=== PATIENT | male | born 1985 | race Caucasian/White ===

== ENCOUNTER 2017-09-15 00:35 | Emergency (ER) | payer BC ==
--- NOTE | 2017-09-15 00:43 | EDM.PDOC ---
ED HPI GENERAL MEDICAL PROBLEM - General Chief Complaint: General Stated Complaint: FEELING ILL Time Seen by Provider: 09/15/17 00:37 - History of Present Illness INITIAL COMMENTS - FREE TEXT/NARRATIVE: HISTORY AND PHYSICAL: History of present illness: Patient 32-year-old white male no past medical history presents with a concern of generally not feeling well he states he's had some nausea and poor appetite he denies fever cough chest pain shortness of breath diarrhea vomiting or other concern. Review of systems: As per history of present illness and below otherwise all systems reviewed and negative. Past medical history: As per history of present illness and as reviewed below otherwise noncontributory. Surgical history: As per history of present illness and as reviewed below otherwise noncontributory. Social history: No reported history of drug or alcohol abuse. Family history: As per history of present illness and as reviewed below otherwise noncontributory. Physical exam: HEENT: Atraumatic, normocephalic, pupils reactive, negative for conjunctival pallor or scleral icterus, mucous membranes moist, throat clear, neck supple, nontender, trachea midline. Lungs: Clear to auscultation, breath sounds equal bilaterally, chest nontender. Heart: S1S2, regular, negative for clicks, rubs, or JVD. Abdomen: Soft, nondistended, nontender. Negative for masses or hepatosplenomegaly. Negative for costovertebral tenderness. Pelvis: Stable nontender. Genitourinary: Deferred. Rectal: Deferred. Extremities: Atraumatic, negative for cords or calf pain. Neurovascular unremarkable. Neuro: Awake, alert, oriented. Cranial nerves II through XII unremarkable. Cerebellum unremarkable. Motor and sensory unremarkable throughout. Exam nonfocal. Diagnostics: CBC CMP influenza screen chest x-ray Therapeutics: None Impression: 1 medical screening exam Definitive disposition and diagnosis as appropriate pending reevaluation and review of above. - Related Data Allergies Allergy/AdvReac Type Severity Reaction Status Date / Time naproxen Allergy Rash Verified 10/26/13 00:15 Penicillins Allergy Rash Verified 10/26/13 00:15 Home Meds: Home Meds Hydrocortisone [Cortizone 10] 28 gm TP BID 10/26/13 [History] Past Medical History - Past Health History Medical/Surgical History: Denies Medical/Surgical History Social & Family History - Tobacco Use Years of Tobacco use: 1 Used Tobacco, but Quit: No - Alcohol Use Days Per Week of Alcohol Use: 0 - Recreational Drug Use Recreational Drug Use: No ED ROS GENERAL - Review of Systems Review Of Systems: ROS reveals no pertinent complaints other than HPI. ED EXAM, GENERAL - Physical Exam Exam: See Below (The dictation) Course - Orders/Labs/Meds Orders: Active Orders 24 hr Category Date Time Status Chest 1V Frontal [CR] Stat Exams 09/15/17 00:40 Ordered CBC WITH AUTO DIFF [HEME] Stat Lab 09/15/17 00:40 Ordered COMPREHENSIVE METABOLIC PN,CMP [CHEM] Stat Lab 09/15/17 00:40 Ordered INFLUENZA A+B AG SCREEN [RM] Stat Lab 09/15/17 00:40 Ordered Departure - Departure Time of Disposition: 00:42 Disposition: Home, Self-Care 01 Condition: Good Clinical Impression: Encounter for medical screening examination - Discharge Information Additional Instructions: The following information is given to patients seen in the emergency department who are being discharged to home. This information is to outline your options for follow-up care. We provide all patients seen in our emergency department with a follow-up referral. The need for follow-up, as well as the timing and circumstances, are variable depending upon the specifics of your emergency department visit. If you don't have a primary care physician on staff, we will provide you with a referral. We always advise you to contact your personal physician following an emergency department visit to inform them of the circumstance of the visit and for follow-up with them and/or the need for any referrals to a consulting specialist. The emergency department will also refer you to a specialist when appropriate. This referral assures that you have the opportunity for followup care with a specialist. All of these measure are taken in an effort to provide you with optimal care, which includes your followup. Under all circumstances we always encourage you to contact your private physician who remains a resource for coordinating your care. When calling for followup care, please make the office aware that this follow-up is from your recent emergency room visit. If for any reason you are refused follow-up, please contact the [facility] emergency department at and asked to speak to the emergency department charge nurse. [facility] [address] [place] [id number] Follow-up clinic call to schedule routine appointment push fluids return as needed as discussed - My Orders Last 24 Hours: My Active Orders 09/15/17 00:40 Chest 1V Frontal [CR] Stat CBC WITH AUTO DIFF [HEME] Stat COMPREHENSIVE METABOLIC PN,CMP [CHEM] Stat INFLUENZA A+B AG SCREEN [RM] Stat - Assessment/Plan Last 24 Hours: My Active Orders 09/15/17 00:40 Chest 1V Frontal [CR] Stat CBC WITH AUTO DIFF [HEME] Stat COMPREHENSIVE METABOLIC PN,CMP [CHEM] Stat INFLUENZA A+B AG SCREEN [RM] Stat
[2017-09-15 01:22] LABS: CHLORIDE,CL 104 mmol/L (98-107); SODIUM,NA 142 mmol/L (136-148)
--- NOTE | 2017-09-15 10:52 | CR ---
EXAM DATE: 09/15/17 PATIENT'S AGE: 32 Patient: RANDI DE JESUS Facility: [place], [place] Site . Site : 1985 Study: XRay Chest [id number]/21/2018 1:07:33 AM Ordering Physician: Nusrat Thompson Final Report: INDICATION: Weak for 3 days TECHNIQUE: Chest radiograph 1 view COMPARISON: None FINDINGS: Mediastinum: The heart silhouette is normal in size and morphology. The mediastinum is normal in appearance. Lungs: Both lungs are unremarkable in appearance. No sign of pleural effusion seen. No pneumothorax is identified. Bones and soft tissue: Unremarkable for age. IMPRESSION: 1. No acute cardiopulmonary disease is seen. Dictated by: Orlando Lerma MD @ 09/15/2017 01:08:09 (Electronic Signature) Report Signed by Proxy. [email or web address]
== END 2017-09-15 01:40 | disposition home or self-care (01) ==
LOC: MW.ED 00:35
DX: Z13.9 Encounter for screening, unspecified (principal); Z88.0 Allergy status to penicillin; Z88.6 Allergy status to analgesic agent; Z79.899 Other long term (current) drug therapy
CPT/HCPCS: 36415; 71045; 71045-26; 80053; 85025; 87804; 99282; 99283

== ENCOUNTER 2017-12-02 04:28 | Emergency (ER) | payer BC ==
[2017-12-02] MEDS ORDERED: Sodium Chloride 0.9% 1,000 ML IV ONE (04:49)
[2017-12-02 05:07] LABS: CHLORIDE,CL 104 mmol/L (98-107); SODIUM,NA 141 mmol/L (136-148)
--- NOTE | 2017-12-02 06:52 | EDM.PDOC ---
ED HPI GENERAL MEDICAL PROBLEM - General Chief Complaint: Abdominal Pain Stated Complaint: ABDOMINAL PAIN AND BACK PAIN Time Seen by Provider: 12/02/17 06:47 - History of Present Illness INITIAL COMMENTS - FREE TEXT/NARRATIVE: HISTORY AND PHYSICAL: History of present illness: Patient's a 32-year-old white male presents with a concern of right-sided abdominal pain is in no associated vomiting diarrhea fever chills he denies trauma denies urinary symptoms denies history of urolithiasis Review of systems: As per history of present illness and below otherwise all systems reviewed and negative. Past medical history: As per history of present illness and as reviewed below otherwise noncontributory. Surgical history: As per history of present illness and as reviewed below otherwise noncontributory. Social history: No reported history of drug or alcohol abuse. Family history: As per history of present illness and as reviewed below otherwise noncontributory. Physical exam: HEENT: Atraumatic, normocephalic, pupils reactive, negative for conjunctival pallor or scleral icterus, mucous membranes moist, throat clear, neck supple, nontender, trachea midline. Lungs: Clear to auscultation, breath sounds equal bilaterally, chest nontender. Heart: S1S2, regular, negative for clicks, rubs, or JVD. Abdomen: Soft, nondistended, right-sided tenderness no rebound no guarding. Negative for masses or hepatosplenomegaly. Negative for costovertebral tenderness. Pelvis: Stable nontender. Genitourinary: Deferred. Rectal: Deferred. Extremities: Atraumatic, negative for cords or calf pain. Neurovascular unremarkable. Neuro: Awake, alert, oriented. Cranial nerves II through XII unremarkable. Cerebellum unremarkable. Motor and sensory unremarkable throughout. Exam nonfocal. Diagnostics: CBC CMP UA CT abdomen and pelvis Therapeutics: Normal saline 1 L bolus Impression: #1 abdominal pain Definitive disposition and diagnosis as appropriate pending reevaluation and review of above. right lower abdomen Pain Score (Numeric/FACES): 10 - Related Data Allergies Allergy/AdvReac Type Severity Reaction Status Date / Time naproxen Allergy Rash Verified 12/02/17 04:32 Home Meds: Home Meds . [No Known Home Meds] 12/02/17 [History] Past Medical History - Past Health History Medical/Surgical History: Denies Medical/Surgical History Psychiatric History: Reports: Depression - Past Surgical History Musculoskeletal Surgical History: Reports: Other (See Below) Other Musculoskeletal Surgeries/Procedures:: right hand sx Social & Family History - Family History Family Medical History: Noncontributory - Tobacco Use Smoking Status *Q: Current Every Day Smoker Years of Tobacco use: 1 Packs/Tins Daily: 1 - Recreational Drug Use Recreational Drug Use: No ED ROS GENERAL - Review of Systems Review Of Systems: ROS reveals no pertinent complaints other than HPI. ED EXAM, GENERAL - Physical Exam Exam: See Below (See dictation) Course - Vital Signs Last Recorded V/S: Last Vital Signs Temp 36.6 C 12/02/17 05:27 Pulse 79 12/02/17 05:27 Resp 14 12/02/17 05:27 BP 117/71 12/02/17 05:27 Pulse Ox 97 12/02/17 05:27 - Orders/Labs/Meds Orders: Active Orders 24 hr Category Date Time Status Abdomen Pelvis wo Cont [CT] Stat Exams 12/02/17 04:48 Taken URINALYSIS W/MICROSCOPIC [UA W/MICROSCOPIC] [URIN] Stat Lab 12/02/17 04:54 Ordered Labs: Laboratory Tests 12/02/17 12/02/17 12/02/17 Range/Units 04:43 04:43 04:54 WBC 13.09 H (4.0-11.0) K/uL RBC 5.08 (4.50-5.90) M/uL Hgb 17.2 H (13.0-17.0) g/dL Hct 48.0 (38.0-50.0) % MCV 94.5 (80.0-98.0) fL MCH 33.9 H (27.0-32.0) pg MCHC 35.8 (31.0-37.0) g/dL RDW Std Deviation 44.2 (28.0-62.0) fl RDW Coeff of Kya 13 (11.0-15.0) % Plt Count 242 (150-400) K/uL MPV 10.50 (7.40-12.00) fL Neut % (Auto) 63.7 (48.0-80.0) % Lymph % (Auto) 26.3 (16.0-40.0) % [place] % (Auto) 6.8 (0.0-15.0) % Eos % (Auto) 2.8 (0.0-7.0) % Baso % (Auto) 0.4 (0.0-1.5) % Neut # (Auto) 8.3 H (1.4-5.7) K/uL Lymph # (Auto) 3.4 H (0.6-2.4) K/uL Roosevelt # (Auto) 0.9 H (0.0-0.8) K/uL Eos # (Auto) 0.4 (0.0-0.7) K/uL Baso # (Auto) 0.1 (0.0-0.1) K/uL Nucleated RBC % 0.0 /100WBC Nucleated RBCs # 0 K/uL Sodium 141 (136-148) mmol/L Potassium 3.9 (3.5-5.1) mmol/L Chloride 104 (98-107) mmol/L Carbon Dioxide 24.9 (21.0-32.0) mmol/L BUN 8 (7.0-18.0) mg/dL Creatinine 1.0 (0.8-1.3) mg/dL Est Cr Clr Drug Dosing 122.07 mL/min Estimated GFR (MDRD) > 60.0 ml/min Glucose 97 (74-106) mg/dL Calcium 8.9 (8.5-10.1) mg/dL Total Bilirubin 0.5 (0.2-1.0) mg/dL AST 27 (15-37) IU/L ALT 48 (14-63) IU/L Alkaline Phosphatase 75 (46-116) U/L Total Protein 7.7 (6.4-8.2) g/dL Albumin 4.0 (3.4-5.0) g/dL Globulin 3.7 H (2.0-3.5) g/dL Albumin/Globulin Ratio 1.1 L (1.3-2.8) Urine Color YELLOW Urine Appearance CLEAR Urine pH 5.5 (5.0-8.0) Ur Specific [place] 1.025 (1.001-1.035) Urine Protein NEGATIVE (NEGATIVE) mg/dL Urine Glucose (UA) NEGATIVE (NEGATIVE) mg/dL Urine Ketones NEGATIVE (NEGATIVE) mg/dL Urine Occult Blood NEGATIVE (NEGATIVE) Urine Nitrite NEGATIVE (NEGATIVE) Urine Bilirubin NEGATIVE (NEGATIVE) Urine Urobilinogen 0.2 (<2.0) EU/dL Ur Leukocyte Esterase NEGATIVE (NEGATIVE) Urine RBC 0-2 (0-2/HPF) Urine WBC 0-3 (0-5/HPF) Ur Epithelial Cells OCCASIONAL (NONE-FEW) Urine Bacteria FEW (NEGATIVE) Urine Mucus LIGHT (NONE-MOD) Meds: Medications Discontinued Medications Generic Name Dose Route Start Last Admin Trade Name Margie PRN Reason Stop Dose Admin Sodium Chloride 1,000 mls @ 999 mls/hr 12/02/17 04:49 12/02/17 04:51 Normal Saline IV 12/02/17 05:49 999 mls/hr .BOLUS ONE Administration Departure - Departure Time of Disposition: 06:51 Disposition: Home, Self-Care 01 Condition: Good Clinical Impression: Abdominal pain - Discharge Information Referrals: PCP,None [Primary Care Provider] - Additional Instructions: The following information is given to patients seen in the emergency department who are being discharged to home. This information is to outline your options for follow-up care. We provide all patients seen in our emergency department with a follow-up referral. The need for follow-up, as well as the timing and circumstances, are variable depending upon the specifics of your emergency department visit. If you don't have a primary care physician on staff, we will provide you with a referral. We always advise you to contact your personal physician following an emergency department visit to inform them of the circumstance of the visit and for follow-up with them and/or the need for any referrals to a consulting specialist. The emergency department will also refer you to a specialist when appropriate. This referral assures that you have the opportunity for followup care with a specialist. All of these measure are taken in an effort to provide you with optimal care, which includes your followup. Under all circumstances we always encourage you to contact your private physician who remains a resource for coordinating your care. When calling for followup care, please make the office aware that this follow-up is from your recent emergency room visit. If for any reason you are refused follow-up, please contact the [facility] emergency department at and asked to speak to the emergency department charge nurse. Push fluids clear liquids 24 hours follow-up primary medical doctor as needed as discussed return as needed as discussed - My Orders Last 24 Hours: My Active Orders 12/02/17 04:48 Abdomen Pelvis wo Cont [CT] Stat 12/02/17 04:54 URINALYSIS W/MICROSCOPIC [UA W/MICROSCOPIC] [URIN] Stat - Assessment/Plan Last 24 Hours: My Active Orders 12/02/17 04:48 Abdomen Pelvis wo Cont [CT] Stat 12/02/17 04:54 URINALYSIS W/MICROSCOPIC [UA W/MICROSCOPIC] [URIN] Stat
--- NOTE | 2017-12-02 08:14 | PCM.CONS ---
H&P History of Present Illness - General Date of Service: 12/02/17 Admit Problem/Dx: Abdominal and back pain. One episode of nausea and vomiting. Admits to drinking a 12 pack of beer last night. Source of Information: Patient, Family History Limitations: Reports: Intoxication - History of Present Illness Symptom Onset Date: 12/01/17 Duration of Symptoms: Reports: Constant, Heavy Location: Reports: Abdomen, Back Quality: Reports: Ache, Sharp Severity: Moderate Improves with: Reports: Rest Worsens with: Reports: Movement Context: Reports: Sick Contact Associated Symptoms: Reports: No Other Symptoms right lower abdomen Pain Score (Numeric/FACES): 6 - Related Data Allergies/Adverse Reactions: Allergies Allergy/AdvReac Type Severity Reaction Status Date / Time naproxen Allergy Rash Verified 12/02/17 04:32 Home Medications: Home Meds . [No Known Home Meds] 12/02/17 [History] Past Medical History - Past Health History Medical/Surgical History: Denies Medical/Surgical History Psychiatric History: Reports: Depression - Past Surgical History Musculoskeletal Surgical History: Reports: Other (See Below) Other Musculoskeletal Surgeries/Procedures:: right hand sx Social & Family History - Family History Family Medical History: Noncontributory - Tobacco Use Smoking Status *Q: Current Every Day Smoker Years of Tobacco use: 1 Packs/Tins Daily: 1 - Recreational Drug Use Recreational Drug Use: No H&P Review of Systems - Review of Systems: Review Of Systems: See Below General: Denies: Fever, Chills HEENT: Reports: No Symptoms Pulmonary: Denies: Shortness of Breath, Wheezing Cardiovascular: Denies: Chest Pain, Palpitations Gastrointestinal: Reports: Abdominal Pain, Diarrhea, Nausea, Vomiting. Denies: Anorexia, Black Stool, Bloody Stool, Constipation, Decreased Appetite, Hematemesis, Hematochezia, Melena Genitourinary: Denies: Dysuria, Frequency Musculoskeletal: Reports: No Symptoms Skin: Denies: Cyanosis, Jaundice Psychiatric: Denies: Confusion, Depression Neurological: Reports: No Symptoms Hematologic/Lymphatic: Reports: No Symptoms Immunologic: Reports: No Symptoms Exam - Exam Exam: See Below - Vital Signs Vital Signs: Last Vital Signs Temp 97.8 F 12/02/17 07:46 Pulse 80 12/02/17 07:46 Resp 18 12/02/17 07:46 BP 131/83 12/02/17 07:46 Pulse Ox 96 12/02/17 07:46 Weight: 210 lb - Exam General: Alert, Oriented, Cooperative, Mild Distress HEENT: Conjunctiva Clear, EACs Clear, EOMI, Pupils Equal, Pupils Reactive. No: Scleral Icterus Neck: Supple, Trachea Midline Lungs: Clear to Auscultation, Normal Respiratory Effort. No: Wheezing Cardiovascular: Regular Rate, Regular Rhythm. No: Tachycardia GI/Abdominal Exam: Normal Bowel Sounds, Soft, Non-Tender, No Distention, No Mass. No: Guarding, Rigid, Rebound (Male) Exam: No Hernia Rectal (Males) Exam: Deferred Back Exam: Normal Inspection, Other (right flank tenderness) Extremities: Normal Inspection Peripheral Pulses: 4+: Posterior Tibial (L), Posterior Tibial (R), Dorsalis Pedis (L), Dorsalis Pedis (R) Skin: Warm, Dry, Intact Neurological: Cranial Nerves Intact, Reflexes Equal Bilateral Psychiatric: Alert, Normal Affect, Normal Mood - Patient Data Lab Results Last 24 hrs: Laboratory Results - last 24 hr 12/02/17 12/02/17 12/02/17 Range/Units 04:43 04:43 04:54 WBC 13.09 H (4.0-11.0) K/uL RBC 5.08 (4.50-5.90) M/uL Hgb 17.2 H (13.0-17.0) g/dL Hct 48.0 (38.0-50.0) % MCV 94.5 (80.0-98.0) fL MCH 33.9 H (27.0-32.0) pg MCHC 35.8 (31.0-37.0) g/dL RDW Std Deviation 44.2 (28.0-62.0) fl RDW Coeff of Kya 13 (11.0-15.0) % Plt Count 242 (150-400) K/uL MPV 10.50 (7.40-12.00) fL Neut % (Auto) 63.7 (48.0-80.0) % Lymph % (Auto) 26.3 (16.0-40.0) % [place] % (Auto) 6.8 (0.0-15.0) % Eos % (Auto) 2.8 (0.0-7.0) % Baso % (Auto) 0.4 (0.0-1.5) % Neut # (Auto) 8.3 H (1.4-5.7) K/uL Lymph # (Auto) 3.4 H (0.6-2.4) K/uL [place] # (Auto) 0.9 H (0.0-0.8) K/uL Eos # (Auto) 0.4 (0.0-0.7) K/uL Baso # (Auto) 0.1 (0.0-0.1) K/uL Nucleated RBC % 0.0 /100WBC Nucleated RBCs # 0 K/uL Sodium 141 (136-148) mmol/L Potassium 3.9 (3.5-5.1) mmol/L Chloride 104 (98-107) mmol/L Carbon Dioxide 24.9 (21.0-32.0) mmol/L BUN 8 (7.0-18.0) mg/dL Creatinine 1.0 (0.8-1.3) mg/dL Est Cr Clr Drug Dosing 122.07 mL/min Estimated GFR (MDRD) > 60.0 ml/min Glucose 97 (74-106) mg/dL Calcium 8.9 (8.5-10.1) mg/dL Total Bilirubin 0.5 (0.2-1.0) mg/dL AST 27 (15-37) IU/L ALT 48 (14-63) IU/L Alkaline Phosphatase 75 (46-116) U/L Total Protein 7.7 (6.4-8.2) g/dL Albumin 4.0 (3.4-5.0) g/dL Globulin 3.7 H (2.0-3.5) g/dL Albumin/Globulin Ratio 1.1 L (1.3-2.8) Urine Color YELLOW Urine Appearance CLEAR Urine pH 5.5 (5.0-8.0) Ur Specific [place] 1.025 (1.001-1.035) Urine Protein NEGATIVE (NEGATIVE) mg/dL Urine Glucose (UA) NEGATIVE (NEGATIVE) mg/dL Urine Ketones NEGATIVE (NEGATIVE) mg/dL Urine Occult Blood NEGATIVE (NEGATIVE) Urine Nitrite NEGATIVE (NEGATIVE) Urine Bilirubin NEGATIVE (NEGATIVE) Urine Urobilinogen 0.2 (<2.0) EU/dL Ur Leukocyte Esterase NEGATIVE (NEGATIVE) Urine RBC 0-2 (0-2/HPF) Urine WBC 0-3 (0-5/HPF) Ur Epithelial Cells OCCASIONAL (NONE-FEW) Urine Bacteria FEW (NEGATIVE) Urine Mucus LIGHT (NONE-MOD) Result Diagrams: 12/02/17 04:43 12/02/17 04:43 Consult PN Assessment/Plan Procedures: Procedures COMPLETE CBC W/AUTO DIFF WBC (09/15/17) COMPREHEN METABOLIC PANEL (09/15/17) EMERGENCY DEPT VISIT (09/15/17) EMERGENCY DEPT VISIT (10/25/13) INFLUENZA ASSAY W/OPTIC (09/15/17) ROUTINE VENIPUNCTURE (09/15/17) X-RAY EXAM CHEST 1 VIEW (09/15/17) (1) Right flank pain SNOMED Code(s): 946459246 Code(s): R10.9 - UNSPECIFIED ABDOMINAL PAIN Priority: Low (2) Musculoskeletal back pain SNOMED Code(s): 582366870, 684386027 Code(s): M54.9 - DORSALGIA, UNSPECIFIED Priority: Medium (3) Abdominal pain SNOMED Code(s): 72448610 Code(s): R10.9 - UNSPECIFIED ABDOMINAL PAIN Priority: Medium Qualifiers: Abdominal location: right lower quadrant Qualified Code(s): R10.31 - Right lower quadrant pain Problem List Initiated/Reviewed/Updated: Yes Plan: This appears to be more musculoskeletal in type. Recommend trial of Flexeril, limited activity and light diet today. Return if symptoms persist. Note CT of abdomen did not reveal any acute pathology.
--- NOTE | 2017-12-02 10:53 | CT ---
EXAM DATE: 12/02/17 PATIENT'S AGE: 32 Patient: RANDI DE JESUS Facility: [place], [place] Site . Site : 1985 Study: CT Abdomen/Pelvis [id number]/7/2018 5:32:15 AM Ordering Physician: Doctor Eisenberg Final Report: HISTORY: Abdomen pain. TECHNIQUE: The chest, abdomen and pelvis were scanned using helical technique at 3 mm intervals from the aortic arch to the pubic symphysis without IV contrast. Sagittal and coronal reconstructions were performed. FINDINGS: Lungs and pleura: No consolidation or pleural effusion is seen. The trachea and major bronchi are patent. Mediastinum and tyrese: No pathologic mediastinal or hilar lymphadenopathy seen. Cardiovascular structures: The thoracic aorta is normal in caliber. The heart is normal size. No pericardial effusion. Liver and gallbladder: The liver parenchyma is homogeneous. No calcified gallstones. Spleen, pancreas and adrenal glands: The spleen is normal in size with a small splenule present. Unenhanced pancreatic parenchyma is homogeneous. Adrenal glands are normal. Kidneys and bladder: No calcified urolithiasis or hydronephrosis. No ureteral stones. The bladder is decompressed. Retroperitoneum and lymph nodes: Aorta is normal in caliber. No pathologic para- aortic lymphadenopathy is seen. GI tract: Stomach is decompressed. No dilated small bowel loops. Normal retrocecal appendix. There is some stool and gas seen scattered throughout the colon with areas of decompression. No diverticulitis. There is no free air in the abdomen. There is no free fluid the pelvis. Chest and abdominal wall: No chest wall mass. Tiny fat containing umbilical hernia without inflammatory change. Pelvic organs: Prostate is normal. Osseous structures: Mild peridiscal spurring is seen at T11-12. Vertebral body heights are maintained. Endplates are well defined. IMPRESSION: 1. No calcified urolithiasis, hydronephrosis or ureteral distraction. 2. No evidence of appendicitis, diverticulitis or bowel obstruction. 3. Degenerative change of the disc at T11-12. Dictated by Fabiana Perales MD @ 12/02/2017 6:09:32 AM Please note that all CT scans at this facility use dose modulation, iterative reconstruction, and/or weight-based dosing when appropriate to reduce radiation dose to as low as reasonably achievable. Dictated by: Fabiana Perales MD @ 12/02/2017 06:09:58 (Electronic Signature) Report Signed by Proxy. MTDD
== END 2017-12-02 07:59 | disposition home or self-care (01) ==
LOC: MW.ED 04:28
DX: R10.9 Unspecified abdominal pain (principal); M54.9 Dorsalgia, unspecified; F17.210 Nicotine dependence, cigarettes, uncomplicated; Z88.8 Allergy status to other drugs, medicaments and biological substances
CPT/HCPCS: 74176; 80053; 81001; 85025; 96360; 99284; J7040; 99283

== ENCOUNTER 2019-08-10 15:15 | Emergency (ER) | payer BC, OTHER ==
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
[2019-08-10] MEDS ORDERED: Diphtheria,Pertussis(Acell),Tetanus Vaccine 0.5 ML Syringe IM ONE (16:37)
--- NOTE | 2019-08-10 16:49 | CR ---
Right foot: 2 views of the right foot were obtained. Comparison: No previous foot exam. Joint spaces are preserved. No fracture or other bony abnormality is seen. No opaque foreign object is seen. Impression: 1. No abnormality is seen on 2 view right foot study. 2. No radiopaque foreign object is appreciated. Diagnostic code #1 This report was dictated in [place] Standard Time
== END 2019-08-10 17:30 | disposition home or self-care (01) ==
LOC: MW.ED 15:15
DX: S91.114A Laceration without foreign body of right lesser toe(s) without damage to nail, initial encounter (principal); F32.9 Major depressive disorder, single episode, unspecified; Z88.8 Allergy status to other drugs, medicaments and biological substances; Z88.6 Allergy status to analgesic agent; Z23 Encounter for immunization; W25.XXXA Contact with sharp glass, initial encounter
CPT/HCPCS: 73620; 90471; 90715; 99283; J2001

== ENCOUNTER 2019-09-12 16:30 | Emergency (ER) | payer OTHER ==
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
== END 2019-09-12 17:50 | disposition home or self-care (01) ==
LOC: MW.ED 16:30
DX: J06.9 Acute upper respiratory infection, unspecified (principal); F32.9 Major depressive disorder, single episode, unspecified; F43.10 Post-traumatic stress disorder, unspecified; F17.210 Nicotine dependence, cigarettes, uncomplicated; Z88.8 Allergy status to other drugs, medicaments and biological substances; Z79.899 Other long term (current) drug therapy
CPT/HCPCS: 87081; 87880-QW; 99283

== ENCOUNTER 2020-01-24 20:36 | Emergency (ER) | payer OTHER | END 2020-01-24 20:46 | disposition left against medical advice (07) | LOC: MW.ED 20:36 | DX: Z53.21 Procedure and treatment not carried out due to patient leaving prior to being seen by health care provider (principal) ==

== ENCOUNTER 2020-03-24 03:07 | Emergency (ER) | payer OTHER ==
[2020-03-24] MEDS ORDERED: Pantoprazole 40 MG Tab.CR PO STA (03:52)
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
--- NOTE | 2020-03-24 04:17 | CR ---
INDICATION: Choking sensation when awakens, COVID-19 TECHNIQUE: Chest radiograph 1 view COMPARISON: None FINDINGS: Mediastinum: The mediastinum is normal in appearance. The heart silhouette is normal in size and morphology. Lung: Both lungs are unremarkable in appearance. No sign of pleural effusion seen. No pneumothorax is identified. Bone and Soft tissue: Unremarkable for age. IMPRESSION: 1. No acute cardiopulmonary disease is seen. Dictated by: Orlando Lerma MD @ 03/24/2020 04:15:44 (Electronically Signed)
== END 2020-03-24 04:30 | disposition home or self-care (01) ==
LOC: MW.ED 03:07
DX: K21.9 Gastro-esophageal reflux disease without esophagitis (principal); F32.9 Major depressive disorder, single episode, unspecified; Z79.899 Other long term (current) drug therapy; Z88.6 Allergy status to analgesic agent
CPT/HCPCS: 71045; 93005; 99283; A9270

== ENCOUNTER 2021-07-28 17:48 | Emergency (ER) | payer OTHER ==
[2021-07-28] MEDS ORDERED: traMADol 50 MG Tab PO ONE (18:28)
== END 2021-07-28 19:05 | disposition home or self-care (01) ==
LOC: MW.ED 17:48
DX: S62.630A Displaced fracture of distal phalanx of right index finger, initial encounter for closed fracture (principal); Z88.6 Allergy status to analgesic agent; W18.30XA Fall on same level, unspecified, initial encounter
CPT/HCPCS: 73140; 99283; A9270

== ENCOUNTER 2024-06-12 09:15 | Emergency (ER) | payer OTHER | END 2024-06-12 11:19 | disposition home or self-care (01) | LOC: MW.ED 09:15 | DX: S62.324A Displaced fracture of shaft of fourth metacarpal bone, right hand, initial encounter for closed fracture (principal); Z88.6 Allergy status to analgesic agent; Y04.2XXA Assault by strike against or bumped into by another person, initial encounter | CPT/HCPCS: 29125; 73130-26-RT; 73130-RT; 99283; 99283-25 ==

== ENCOUNTER 2024-06-14 07:34 | Day surgery (SDC) | payer OTHER ==
[~2024-06-14 07:34] MED LIST: Albuterol 0.083% 2.5 MG/3 ML Neb Soln NEB PRN; Metoclopramide 10 MG/2 ML SDV IVPUSH PRN; Naloxone 0.4 MG/ML SDV IVPUSH PRN; Ondansetron 4 MG/2 ML SDV IVPUSH PRN; Phenylephrine HCl In 0.9% NaCl 1 MG/10 ML Syringe IVPUSH PRN; fentaNYL 50 MCG/ML SDV IVPUSH PRN
[2024-06-14] MEDS ORDERED: fentaNYL 100 MCG/2 ML SDV ONE (07:35)
[2024-06-14] MEDS ORDERED: Lidocaine 1% 5 ML VIAL ONE (07:43)
[2024-06-14] MEDS ORDERED: Dexamethasone 4 MG/ML 5 ML MDV ONE (07:43)
[2024-06-14] MEDS ORDERED: Propofol 200 MG/20 ML SDV ONE (07:43)
[2024-06-14] MEDS ORDERED: Ondansetron 4 MG/2 ML SDV ONE (07:43)
[2024-06-14] MEDS ORDERED: Midazolam 1 MG/ML 2 ML SDV ONE (07:45)
[2024-06-14] MEDS: Lactated Ringers 1,000 ML IV SCH (08:09)
[2024-06-14] MEDS ORDERED: Phenylephrine HCl In 0.9% NaCl 1 MG/10 ML Syringe ONE (09:08)
[2024-06-14] MEDS ORDERED: ceFAZolin 2 GM Vial ONE (09:11)
[2024-06-14] MEDS: HYDROmorphone 1 MG/ML Syringe IVPUSH PRN (10:11)
[2024-06-14] MEDS: Morphine 2 MG/ML SYRINGE IVPUSH PRN (10:51)
== END 2024-06-14 11:35 | disposition home or self-care (01) ==
LOC: MW.SDS 07:34
PROVIDERS: ATTEND Orthopaedic Surgery
DX: S62.304A Unspecified fracture of fourth metacarpal bone, right hand, initial encounter for closed fracture (principal); F32.A Depression, unspecified; F17.210 Nicotine dependence, cigarettes, uncomplicated; X58.XXXA Exposure to other specified factors, initial encounter
CPT/HCPCS: 26608; 76000; J0131; J0690; J1100; J1171; J2250; J2270; J2371; J2405; J2704; J3010; J7120; 01820; J3490

== ENCOUNTER 2024-06-19 18:14 | Emergency (ER) | payer OTHER | END 2024-06-19 22:12 | disposition left against medical advice (07) | LOC: MW.ED 18:14 | DX: S62.91XA Unspecified fracture of right hand, initial encounter for closed fracture (principal); E66.9 Obesity, unspecified; Z79.899 Other long term (current) drug therapy; Z68.31 Body mass index [BMI] 31.0-31.9, adult; X58.XXXA Exposure to other specified factors, initial encounter | CPT/HCPCS: 99283 ==